=== PATIENT | female | born 1985 | race African-American/Black ===

== ENCOUNTER 2016-09-05 20:28 | Emergency (ER) | payer OTHER ==
[~2016-09-05] VITALS: Ht 165.1 cm; Wt 59.0 kg
[~2016-09-05 20:28] MED LIST: ACYCLOVIR800 MG PO; AMOX TR-K CLV1 EAC4 PO; ENDOCET 5-3251 EACH PO; ESCITALOPRAM OX20 MG PO; GABAPENTIN400 MG PO; LAMOTRIGINE200 MG PO; NAPROXEN500 MG PO; NOHOMEMEDS; NORCO 5/3251 TABLET PO; QUETIAPINE FUM300 MG PO; TESSALON200 MG PO; VENLAFAXINE HCL75 M3 PO; ZYRTEC10 M3 PO
[2016-09-05] MEDS ORDERED: BACTRIM,SEPT1 TABLET PO (23:12)
[2016-09-05] MEDS ORDERED: NORCO 5/3251 TABLET PO (23:12)
[2016-09-06 00:13] VITALS: BP 133/78
== END 2016-09-05 23:58 | disposition home or self-care (01) ==
LOC: EME 20:28 → EXP 20:28
DX: S90.811A Abrasion, right foot, initial encounter (principal); V09.20XA Pedestrian injured in traffic accident involving unspecified motor vehicles, initial encounter; F17.200 Nicotine dependence, unspecified, uncomplicated
CPT/HCPCS: 73610; 73630; 99281; 99283